=== PATIENT | female | born 1950 | race Caucasian/White ===

== ENCOUNTER 2017-07-20 07:12 | Outpatient (CLI) | payer BC ==
[2017-07-20 09:45] LABS: INR-International Normal Ratio 1.1; PTT 30.7 SEC (22.9-36.1); Prothrombin Time 14.2 SEC (12.0-14.7)
--- NOTE | 2017-07-20 10:54 | RAD ---
CHEST TWO VIEWS: HISTORY: Preop. COMPARISON: Chest radiograph from 11/11/2015 FINDINGS: The lungs are without focal air space consolidation, pneumothorax, or effusion. [place] fusion hardwa re is present. Lower thoracic spine focal kyphosis. Lumbar spine fusion hardware. No focal air space consolidation, pneumothorax, or effusion. Some scarring is present in the right m iddle lobe. IMPRESSION: No acute intrathoracic abnormality. POS: [facility]
--- NOTE | 2017-07-25 08:44 | EKG ---
Test Reason : Blood Pressure : / mmHG Vent. Rate : 070 BPM Atrial Rate : 070 BPM P-R Int : 186 ms QRS Dur : 142 ms QT Int : 442 ms P-R-T Axes : 059 -54 019 degrees QTc Int : 477 ms Normal sinus rhythm Right bundle branch block Left anterior fascicular block Bifascicular block Abnormal ECG When compared with ECG of 07-AUG-2015 09:33, No significant change was found Confirmed by MATEUS HOLT MD ([id number]) on 07/25/2017 8:43:36 AM Referred By: WALE Confirmed By:MATEUS HOLT MD
== END 2017-07-20 07:13 | disposition home or self-care (01) ==
LOC: LABBT 07:12
PROVIDERS: ATTEND Orthopaedic Surgery
DX: Z01.818 Encounter for other preprocedural examination (principal); M17.12 Unilateral primary osteoarthritis, left knee
CPT/HCPCS: 71046; 85610; 85730; 86850; 86900; 86901; 87081; 93005; 93010

== ENCOUNTER 2017-07-20 08:00 | Inpatient (IN) | payer BC, MEDICARE ==
[2017-07-20 08:08] VITALS: BMI 32.9
[2017-07-27] MEDS ORDERED: CEFAZOLIN/Water 2 GM/20 ML SYRINGE ONE (08:17)
[2017-07-27] MEDS ORDERED: Vancomycin HCl 1.5 GM, Admixture Fee 1 EACH in Sodium Chloride 0.9% 250 ML 300 ML IVPB SCH (08:30)
[2017-07-27] MEDS ORDERED: Fentanyl 100 MCG/2 ML VIAL ONE ×4 (09:33→13:11)
[2017-07-27] MEDS ORDERED: Midazolam HCl 2 mg/2 ml Vial ONE (09:33)
[2017-07-27] MEDS ORDERED: Ropivacaine 0.2% HCl/PF 20 ML ONE (09:34)
[2017-07-27] MEDS ORDERED: Zolpidem Tartrate 5 MG TAB PO PRN ×2 (10:41→10:52)
[2017-07-27] MEDS ORDERED: Promethazine HCl 25 MG/ML VIAL IM PRN ×3 (10:41→11:21)
[2017-07-27] MEDS ORDERED: diphenhydrAMINE 25 MG CAP PO PRN (10:41)
[2017-07-27] MEDS ORDERED: HYDROcodone/Acetaminophen 10/325 mg Tablet PO PRN ×3 (10:41→10:52)
[2017-07-27] MEDS ORDERED: Fentanyl 100 MCG/2 ML VIAL SLOW IVP PRN ×2 (10:41)
[2017-07-27] MEDS ORDERED: traMADol HCl 50 MG TAB PO PRN ×2 (10:41→10:52)
[2017-07-27] MEDS ORDERED: Ondansetron HCl/PF 4 MG/2 ML Vial IVP PRN ×3 (10:41→11:21)
[2017-07-27] MEDS ORDERED: Acetaminophen 325 MG TAB PO PRN (10:41)
[2017-07-27] MEDS ORDERED: Nitroglycerin 0.4 MG TAB (25 Tab Bottle) SL PRN (10:45)
[2017-07-27] MEDS ORDERED: Torsemide 20 MG TAB PO PRN (10:45)
[2017-07-27] MEDS ORDERED: Ondansetron ODT 4 MG TAB SL PRN (10:45)
[2017-07-27] MEDS ORDERED: Loperamide HCl 2 MG CAP PO PRN (10:45)
[2017-07-27] MEDS ORDERED: Tranexamic Acid 1,000 MG in Sodium Chloride 0.9% 100 ML IVPB SCH (10:45)
[2017-07-27] MEDS ORDERED: Montelukast Sodium 10 mg Tablet PO PRN (10:45)
[2017-07-27] MEDS ORDERED: Ketorolac Tromethamine 30 MG/ML VIAL IVP PRN (10:52)
[2017-07-27] MEDS ORDERED: Fentanyl 100 MCG/2 ML VIAL IV PRN (10:52)
[2017-07-27] MEDS ORDERED: Promethazine HCl 25 MG/ML VIAL SLOW IVP PRN (11:21)
--- NOTE | 2017-07-27 13:03 | OP ---
PREOPERATIVE DIAGNOSIS: Degenerative joint disease, left knee. POSTOPERATIVE DIAGNOSIS: Degenerative joint disease, left knee. SURGEON: Jose Luis Carbajal M.D. ANESTHESIA: General. BLOOD LOSS: Minimal. SPECIMEN: None. DRAINS: None. COMPLICATIONS: None. TOURNIQUET TIME: 48 min. SALESPERSON STEREO EQUIPMENT: Raf Winter PA-C. IMPLANTS USED: Tino Triathlon 4 femur, 4 tibia, 9 mm CSX3 polyethylene, and A32 patella. PROCEDURE IN DETAIL: After informed consent was obtained in the preoperative holding area. The chely ent was taken to the operative suite where general anesthesia was induced. Once adequate level of ge neral anesthesia was obtained, the patient was positioned and a well-padded tourniquet was placed rosales und the left proximal thigh. The left lower extremity was then prepped and draped in the usual steri le fashion. Prior to exsanguination, a time out was called and all members of the surgical team agre ed upon site, surgeon, and patient. The extremity was then exsanguinated and the tourniquet was rais ed. A midline longitudinal incision was then made directly over the patella extending two fingerbrea dths above the superior pole of the patella and two fingerbreadths inferior to the inferior patellar pole of the patella. Deeper subcutaneous layers were dissected sharply and local bleeding was contro lled with Bovie electrocautery. A quad tendon longitudinal split was then made sharply and a median parapatellar arthrotomy was carried out both sharp and with Bovie electrocautery, carried down to one fingerbreadth medial to the tibial tubercle. The knee was then placed into flexion and the patella was everted nicely, and a copious fat pad ectomy was performed allowing for greater exposure of the t ibia. The computer-assisted distal femoral fiducial was then placed and pinned firmly, and the dista l femoral cutting guide was pinned firmly into place. The oscillating saw was then used to remove th e appropriate amount of bone. The 4-in-1 cutting block was then placed on the distal femur and the o scillating saw was used to remove the appropriate amount of bone off of the anterior, posterior, and chamfer cuts. After completion of bone cuts, the anterior cruciate ligament was resected sharply and the posterior cruciate ligament retractor was placed and the tibia was subluxed for better exposure. Partial meniscectomies were carried out, and the tibial computer-assisted fiducial was pinned, and the cutting guide was placed. Oscillating saw was then used to remove the bone with Hohmann retracto rs used to take care and protect the collateral ligaments. After the tibial resection was performed, a laminar print color operator was placed in between the freshened bone cuts. The knee placed at 90 degrees and further bilateral meniscectomies were carried out, and the curved osteotome and curettage was used t o remove any excess bone spurs in the posterior compartment. The trial femoral component, tibial bas eplate were placed with the appropriate polyethylene trial insert with an appropriate polyethylene sp acer and patellar button. The knee was taken through full range of motion with flexion and extension from 0-90 degrees and patellar broach squarely in the trochlea without any squinting or subluxation noted. The knee was also stable to varus and valgus stressing at 0, 15, 45, and 90 degrees of flexio n. The drawer was negative. All trial components were then removed and the keel punch was used to pr ovide the appropriate defect in the tibia with a mallet. The freshened bone cuts were copiously irri gated with pulsatile lavage of about 1-1/2 liters to remove all excess debris. The freshened bone cu ts were then dried and with suction and lap sponge. The knee was placed in flexion and retractors we re placed to provide access to all bone cuts. Tobramycin impregnated methyl methacrylate cement was then placed on the freshened bone cuts and implants which were malleted firmly into place. Curettage and [place] elevators were used to remove any excess bone cement. The knee was placed into full exten alida and the patellar button was placed under compression, and the cement was allowed to cure. Once completed, the components were again taken through full range of motion and copious irrigation of the knee was carried out with another liter of normal saline. All components were inspected fully with full range of motion and varus and valgus stressing. There was no laxity noted and full extension was observed clinically. Primary closure was accomplished with #2 interrupted Vicryl stitch of the arth rotomy defect. This was oversewn with a #2 running Quill barbed stitch. The gravitational platelet system was then injected into the arthrotomy prior to closure. The subcutaneous layer was then close d with a running 0 barbed Monocryl stitch and skin closure accomplished with a running subcuticular 3 -0 Monocryl barbed Quill stitch and augmented with cement on the skin. Tourniquet was lowered. Good spontaneous return of distal pulses was noted clinically and a sterile dressing was applied to the i ncision. The procedure was terminated without any complications. The patient was awakened in the op erative suite and the tourniquet was removed, and the patient was taken to the recovery room in stabl e condition.
[2017-07-27] MEDS ORDERED: Promethazine HCl 25 MG/ML VIAL ONE (13:21)
[2017-07-27] MEDS ORDERED: hydrALAZINE 20 MG/ML VIAL ONE (13:24)
[2017-07-27] MEDS ORDERED: Ketorolac Tromethamine 30 MG/ML VIAL IM SCH (14:00)
--- NOTE | 2017-07-27 14:17 | RAD ---
RADIOGRAPH LEFT KNEE TWO VIEWS: Date: 07-27-17 History: 67-year-old female with left knee pain. FINDINGS: Metallic prostheses cover the resurfaced articular surfaces of the distal femur and tibial plateau. T here are resurfacing changes in the posterior aspect of the patella. There is fluid and gas in the an terior soft tissues of the knee. IMPRESSION: Very recently status post left knee total replacement arthroplasty. POS: [facility]
[2017-07-27] MEDS: HYDROcodone/Acetaminophen 10/325 mg Tablet PO PRN ×2 (14:38→20:25)
[2017-07-27] MEDS: Sodium Chloride 0.9% 1,000 ML IV SCH (14:52)
[2017-07-27] MEDS ORDERED: Ropivacaine 0.2% HCl/PF (40 MG/20 ML VIAL) ONE (15:39)
[2017-07-27] MEDS ORDERED: Ropivacaine 0.5% HCl/PF (150 MG/30 ML VIAL) ONE (15:39)
[2017-07-27] MEDS ORDERED: PHENYLEPHRINE-NS 100 MCG/ML 10 ML SYRINGE ONE (16:10)
[2017-07-27] MEDS ORDERED: ePHEDrine/0.9% NaCl/PF SYRINGE 50 mg/10 ml ONE (16:10)
[2017-07-27] MEDS ORDERED: Lidocaine 1% PF 5 ML VIAL ONE (16:10)
[2017-07-27] MEDS ORDERED: PROPOFOL 200 MG/20 ML VIAL ONE (16:10)
[2017-07-27] MEDS: tiZANidine HCl 4 MG TAB PO PRN (16:51)
[2017-07-27] MEDS: CEFAZOLIN/Water 2 GM/20 ML SYRINGE SLOW IVP SCH (16:52)
[2017-07-27] MEDS: Aspirin 81 mg Enteric Coated Tablet PO SCH (20:27)
[2017-07-27] MEDS: Atorvastatin Calcium 40 MG TAB PO SCH (20:27)
[2017-07-27] MEDS: ALPRAZolam 0.5 MG TAB PO PRN (20:43)
[2017-07-28] MEDS: CEFAZOLIN/Water 2 GM/20 ML SYRINGE SLOW IVP SCH (00:26)
[2017-07-28] MEDS: Sodium Chloride 0.9% 1,000 ML IV SCH ×3 (00:27→14:43)
[2017-07-28] MEDS: Bupivacaine 0.5% 50 ML in Sodium Chloride 0.9% 50 ML NERVE BLCK SCH ×3 (01:44→16:24)
[2017-07-28] MEDS: tiZANidine HCl 4 MG TAB PO PRN ×3 (02:05→21:21)
[2017-07-28] MEDS: HYDROcodone/Acetaminophen 10/325 mg Tablet PO PRN ×5 (02:11→22:24)
[2017-07-28 05:49] LABS: Hemoglobin 10.3 g/dL (12.0-16.0); Mean Corpuscular HGB CONC 33.2 g/dL (32.0-36.0); Mean Corpuscular Hemoglobin 29.9 pg (27.0-31.0); Platelet Count 249 thou/uL (130-400); RBC Distribution Width 13.6 % (11.5-14.5); Red Blood Cell (RBC) Count 3.46 mill/uL (4.20-5.40); White Blood Cell (WBC) Count 5.6 thou/uL (4.8-10.8)
[2017-07-28] MEDS: Levothyroxine Sodium 100 MCG TAB PO SCH (06:08)
[2017-07-28] MEDS ORDERED: Dextrose 5% in Water 1,000 ML IV PRN (07:30)
[2017-07-28] MEDS ORDERED: Dextrose 50% Abboject 50 ML SYRINGE SLOW IVP PRN (07:30)
--- NOTE | 2017-07-28 07:52 | CON ---
DATE OF CONSULTATION: 07/28/2017 HISTORY OF PRESENT ILLNESS: This patient is a 67-year-old female status post left total knee replace ment surgery performed yesterday. She is doing well postoperatively. She has a known history of ath erosclerotic coronary artery disease, recurrent back pain status post multiple lumbar laminectomies, has a history of type 2 diabetes mellitus, not insulin-dependent, has a history of previous bowel obs truction, status post partial colectomy. She is doing well. She is complaining of some pain today. Otherwise, no other medical complaints are noted. PHYSICAL EXAMINATION: VITAL SIGNS: Temperature is 97.7, BP 160/74. HEENT: Normocephalic, atraumatic. Sclerae and conjunctivae clear. Throat clear. NECK: Supple, full range of motion, no masses. LUNGS: Reveal bilateral breath sounds. HEART: Reveals no murmur. EXTREMITIES: No clubbing, edema or cyanosis. NEUROLOGICAL: She is alert and oriented x3. LABORATORY: Postoperative hemoglobin 10.3, hematocrit 31.2. IMPRESSION: 1. Status post left total knee replacement surgery. 2. History of atherosclerotic coronary artery disease, stable. 3. History of type 2 diabetes mellitus, not insulin-dependent. 4. Previous history of bowel obstruction, status post partial colectomy. PLAN: 1. Will place her on glucose monitoring. She may use her home [place] and monitor on diabetic care. 2. Otherwise, continue to follow.
[2017-07-28] MEDS: traMADol HCl 50 MG TAB PO PRN ×3 (08:43→20:18)
[2017-07-28] MEDS: Valsartan 80 MG TAB PO SCH (08:46)
[2017-07-28] MEDS: Senokot S 8.6-50 MG TAB PO SCH ×2 (08:47→20:19)
[2017-07-28] MEDS: metFORMIN 500 MG TAB PO SCH ×2 (08:47→16:24)
[2017-07-28] MEDS: Lactinex Tablet PO SCH (08:47)
[2017-07-28] MEDS: Aspirin 81 mg Enteric Coated Tablet PO SCH ×2 (08:47→20:20)
[2017-07-28] MEDS: Ferrous Gluconate 324 MG TAB PO SCH ×2 (08:47→20:19)
[2017-07-28] MEDS: Vit A,C & E/Lutein/Minerals Tablet PO SCH ×2 (08:47→20:19)
[2017-07-28] MEDS: Spironolactone 25 MG TAB PO SCH (08:48)
[2017-07-28] MEDS: Multivitamin W/ Minerals 1 TAB PO SCH (08:48)
--- NOTE | 2017-07-28 13:07 | PRG ---
DATE OF SERVICE: 07/28/2017 SUBJECTIVE: Rosalia is a 67-year-old female who is postop day #1 from left total knee arthroplasty. S he is doing relatively well. She did have some discomfort last night. Her pain medications have bee n adjusted. Otherwise, she is tolerating regular diet. OBJECTIVE: GENERAL: She is alert and oriented to person, time, and situation. VITAL SIGNS: Temperature 97.7, pulse 70, respiratory rate 18, O2 saturation 97% on room air, blood p ressure is little high at 160/74, and vacillates up to 170 systolic. EXTREMITIES: The inspection of the left lower extremity demonstrated to be neurovascularly intact. She has good block as no strike through the incision. HEMOGRAM: Hemoglobin is 10.3 and hematocrit is 31.2. IMPRESSION: 1. A 67-year-old female postop day #1, left total knee arthroplasty doing relatively well. Pain con trol adequately. 2. Mild postoperative hemorrhagic anemia. PLAN: Continue current care. Consider discharge to home tomorrow or quite possibly Wednesday at the la test.
[2017-07-28] MEDS: INSULIN GLARGINE HUM REC ANLOG 300 UNIT SQ SCH ×3 (16:52→20:33)
[2017-07-28] MEDS: Atorvastatin Calcium 40 MG TAB PO SCH (20:20)
[2017-07-28] MEDS: ALPRAZolam 0.5 MG TAB PO PRN (22:23)
[2017-07-29] MEDS: Sodium Chloride 0.9% 1,000 ML IV SCH ×2 (02:06→13:23)
[2017-07-29] MEDS: HYDROcodone/Acetaminophen 10/325 mg Tablet PO PRN (03:00)
[2017-07-29 04:56] LABS: Mean Corpuscular HGB CONC 32.9 g/dL (32.0-36.0); Mean Corpuscular Hemoglobin 29.5 pg (27.0-31.0); Mean Corpuscular Volume 89.7 fl (81.0-99.0); Mean Platelet Volume 6.9 fL (7.4-10.4); Platelet Count 236 thou/uL (130-400); RBC Distribution Width 13.6 % (11.5-14.5); Red Blood Cell (RBC) Count 3.38 mill/uL (4.20-5.40); White Blood Cell (WBC) Count 6.1 thou/uL (4.8-10.8)
[2017-07-29] MEDS: traMADol HCl 50 MG TAB PO PRN (05:23)
[2017-07-29] MEDS: Levothyroxine Sodium 100 MCG TAB PO SCH (05:23)
[2017-07-29] MEDS: tiZANidine HCl 4 MG TAB PO PRN (05:23)
[2017-07-29] MEDS: Bupivacaine 0.5% 50 ML in Sodium Chloride 0.9% 50 ML NERVE BLCK SCH (05:23)
--- NOTE | 2017-07-29 07:41 | PRG ---
DATE OF SERVICE: 07/29/2017 SUBJECTIVE: Ms. Bruce is doing well postoperatively. No other significant complaints. PHYSICAL EXAMINATION: VITAL SIGNS: Blood pressure 130/64, temperature 98.1. LUNGS: Clear. HEART: Reveals no murmur. IMPRESSION: 1. Status post left total knee replacement. 2. Atherosclerotic coronary artery disease. 3. Type 2 diabetes mellitus. PLAN: Continue current treatment regimen.
[2017-07-29] MEDS: Senokot S 8.6-50 MG TAB PO SCH (08:54)
[2017-07-29] MEDS: Valsartan 80 MG TAB PO SCH (08:54)
[2017-07-29] MEDS: Lactinex Tablet PO SCH (08:54)
[2017-07-29] MEDS: Vit A,C & E/Lutein/Minerals Tablet PO SCH (08:54)
[2017-07-29] MEDS: Ferrous Gluconate 324 MG TAB PO SCH (08:54)
[2017-07-29] MEDS: Multivitamin W/ Minerals 1 TAB PO SCH (08:55)
[2017-07-29] MEDS: Aspirin 81 mg Enteric Coated Tablet PO SCH (08:55)
[2017-07-29] MEDS: Spironolactone 25 MG TAB PO SCH (08:55)
[2017-07-29] MEDS: metFORMIN 500 MG TAB PO SCH (08:55)
[2017-07-29] MEDS: INSULIN GLARGINE HUM REC ANLOG 300 UNIT SQ SCH (08:56)
[2017-07-29 12:34] VITALS: BP 130/65; TEMP 97.4
== END 2017-07-29 13:55 | disposition home or self-care (01) | DRG 470 ==
LOC: SURG A 07-27 07:39
PROVIDERS: ADMIT Orthopaedic Surgery; ATTEND Orthopaedic Surgery
PROC: 0SRD0J9 Replacement of Left Knee Joint with Synthetic Substitute, Cemented, Open Approach (ICD-10-PCS; principal; 2017-07-27)
DX: M17.12 Unilateral primary osteoarthritis, left knee (principal); D62 Acute posthemorrhagic anemia; E11.9 Type 2 diabetes mellitus without complications; I25.10 Atherosclerotic heart disease of native coronary artery without angina pectoris; Z79.84 Long term (current) use of oral hypoglycemic drugs; Z91.81 History of falling
CPT/HCPCS: 36415; 36416; 85027; C1713; C1776; G8978-GP-CL; G8979-GP-CJ; J0360; J1885; J2001; J2250; J2550; J2704; J2795; J3010; J3370; J3490; J7050; Q0162

== ENCOUNTER 2017-10-13 12:54 | Outpatient (CLI) | payer BC ==
[~2017-10-13 12:54] MED LIST: Gadobenate Dimeglumine 529 MG/1 ML (20ML VIAL) ONE
--- NOTE | 2017-10-13 15:57 | MRI ---
PRE AND POSTCONTRAST ENHANCED MRI OF THE CERVICAL SPINE: Date: 10/13/17 HISTORY: Neck pain down arm. Previous history of surgery. TECHNIQUE: Multiplanar, multisequence pre and postcontrast enhanced MR images of cervical spine obtained. FINDINGS: The patient has had anterior cervical spine fusion with fusion of C4, C5, C6, and C7 vertebrae. Poste rior fusion hardware is in place. Susceptibility artifact significantly degrades image quality extend ing from C4 down to C7. No significant evidence of spinal cord compression is seen. Further workup using cervical myelogram m ay be of use. No evidence of cord abnormality seen. IMPRESSION: Extensive surgical changes seen in the lower cervical spine with anterior fusion and posterior fusion hardware in place. POS: [facility]
--- NOTE | 2017-10-13 16:25 | MRI ---
MRI OF THE LUMBAR SPINE WITH AND WITHOUT CONTRAST: 10/13/17 HISTORY: Lumbar radiculopathy. Pain. COMPARISON: None TECHNIQUE: MRI of the lumbar spine is performed without intravenous gadolinium administration. Multisequential, multiplanar imaging is performed. FINDINGS: There are bilateral transpedicular screws at L4 and L5. There is associated metallic susceptibility a rtifact. There is leftward curvature of the lumbar spine. There is type II Modic change involving the L1-L2 disc space as well as the L3-L4 disc space. There is near complete fusion of these aforementio harry disc spaces. On the postcontrast images, there is no abnormal enhancement of the vertebral bodies . There is no abnormal enhancement within the thecal sac, including the cauda equina and conus medull maritza. There is symmetric signal intensity of the psoas muscles. There is appropriate signal intensity of th e visualized solid organs. Conus medullaris terminates at the L1 level. T12-L1: Desiccation with moderate loss of disc space height. Broad based disc bulge, ligamentum flavu m thickening and facet hypertrophy result in severe bilateral foraminal narrowing. L1-L2: Severe loss of disc space height. There is mild central canal stenosis with what is presumed t o be a broad based disc osteophyte complex. Moderate right and mild left neural foraminal narrowing. L2-L3: Desiccation with moderate loss of disc space height. Generalized disc bulge, ligamentum flavum , and facet hypertrophy result in severe central canal stenosis. Moderate right and mild left neural foraminal narrowing. L3-L4: There is fusion of the disc space. There is posterior decompression and laminectomy defect. Mi ld central canal stenosis. Moderate bilateral foraminal narrowing. L4-L5: Desiccation with moderate loss of disc space height. Broad based disc bulge, ligamentum flavum thickening and facet hypertrophy result in moderate to severe central canal stenosis. Mild right and severe left foraminal narrowing. L5-S1: desiccation with mild loss of disc space height. Mild central canal stenosis. Mild right and m oderate left neural foraminal narrowing. IMPRESSION: 1. Degenerative changes lumbar spine as detailed above. 2. Postoperative changes lumbar spine as above. Laminectomy defect at L3-L4 is noted. There are varying degrees of significant central canal stenosis and foraminal narrowing as described above. Lef tward curvature of the lumbar spine is identified. POS: [facility]
== END 2017-10-13 12:55 | disposition home or self-care (01) ==
LOC: SCSMRI 12:54
PROVIDERS: ATTEND Nurse Practitioner Family
DX: M47.26 Other spondylosis with radiculopathy, lumbar region (principal); M54.12 Radiculopathy, cervical region; M48.061 Spinal stenosis, lumbar region without neurogenic claudication; M48.07 Spinal stenosis, lumbosacral region; M99.81 Other biomechanical lesions of cervical region; Z98.890 Other specified postprocedural states; Z98.1 Arthrodesis status
CPT/HCPCS: 72156; 72158; 82565; A9579

== ENCOUNTER 2017-11-22 06:40 | Day surgery (SDC) | payer BC ==
[2017-11-19 15:25] VITALS: BMI 32.0
[2017-11-22 08:07] VITALS: BP 132/73; TEMP 97.7
--- NOTE | 2017-11-22 10:06 | RAD ---
CERVICAL SPINE 2 VIEWS: Date: 11/22/17 HISTORY: Cervical fusion. Pain. COMPARISON: 05/20/16. FINDINGS: Two views of the cervical spine demonstrate stable fusion changes. There is an anterior fusion plate bridging between C4 and c7. There is corpectomy change at C5, C6, and C7. There are posterior fusion changes from C4 through C7. When compared to the previous exam, there is no change. No prevertebral s oft tissue swelling. Vascular calcifications in the left and right carotid are suggested. IMPRESSION: Stable cervical fusion change. POS: [facility]
[2017-11-22] MEDS ORDERED: Iopamidol-M 300 61% 15 ML VIAL ONE (10:10)
--- NOTE | 2017-11-22 10:26 | RAD ---
CERVICAL MYELOGRAM: Date: 11/22/17 HISTORY: Cervical radiculopathy. EXPOSURE: 1 minute. 585.6 mGy*cm^2. FINDINGS: 2 View Lumbar Spine Continuous Conveyor Screen Drier Radiograph: There is leftward curvature of the upper lumbar spine. There are bilateral transpedicular screws at L 4 and L5 without significant perihardware lucency. Multilevel vacuum disc phenomenon noted. Continuous Conveyor Screen Drier radiograph demonstrates previous surgery change in the right hemipelvis. Successful lumbar puncture for intrathecal contrast administration. A total of 9 mL of Isovue-M300 wa s administered intrathecally. The patient tolerated the procedure well. No immediate or postprocedure complications. TECHNIQUE: Consent obtained to perform a lumbar puncture. Patient's back is evaluated. There is leftward curvatu re of the upper lumbar spine. The is vacuum disc phenomenon at multiple levels. Patient's back was ev aluated. L1-L2 level was deemed appropriate. Skin prepped and draped in the sterile fashion. 1% lidoc raad, buffered with sodium bicarbonate, was used for local anesthesia. Under fluoroscopic guidance, a 22 gauge spinal needle was advanced into the CSF space. Inner stylette was removed. There was prompt flow of clear CSF into the hub of the needle. Via a short tubing catheter, a total of 9 mL of Isovue -300M contrast was administered intrathecally. The patient tolerated the procedure well. No immediate or postprocedure complications. IMPRESSION: Successful lumbar puncture for cervical myelogram. Please refer to post myelogram CT for further deta il. POS: [facility]
--- NOTE | 2017-11-22 10:39 | CT ---
CT CERVICAL SPINE POST MYELOGRAM: Date: 11/22/17 HISTORY: Cervical radiculopathy. Previous cervical fusion. COMPARISON: 11/08/15. TECHNIQUE: Post myelogram cervical spine CT is performed in the axial plane. Coronal and sagittal reformatted im ages are submitted for interpretation. FINDINGS: No craniocervical dissociation. Lateral masses of C1 and C2, as well as the facets, have appropriate articulation. There appears to be interval placement of transvertebral screws at C4 through C7. There is corpectomy change at C5 and C6. No perihardware lucency. There are fusion changes in the posterio r elements from C4 through C7. There is interval disruption of the anterior C1 ring. Cortication suggests a chronic process. There i s appropriate alignment of the anterior aspect of C1 and the anterior aspect of C2. There is no preve rtebral soft tissue swelling. Soft tissue neck structures are unremarkable. Upper mediastinum and lung apices are unremarkable. There are laminectomy defects at C4, C5, and C6. Visualized brain parenchyma and cervicomedullary junction are unremarkable. C2-C3: Broad based disc osteophyte complex with a central component that abuts the thecal sac. Mild central canal stenosis. Patient neural foraminal narrowing. C3-C4: There is a broad based disc osteophyte complex and posterior element hypertrophy that results in mild central canal stenosis. Mild right foraminal narrowing. Left neural foramen is patent. C4-C5: Posterior decompression. There is a right paracentral osteophyte. Mild central canal stenosis. Right facet hypertrophy. Mild right foraminal narrowing. Left neural foramen is patent. C5-C6: There is a right paracentral osteophyte ridge. There is deformity to the ventral sac and deformity of the cord. Decompressive laminectomy defect is noted. There is no high grade central canal stenosis. Moderate right foraminal narrowing. Left neural foramen is patent. C6-C7: There is a broad based osteophyte ridge which abuts the thecal sac. Mild central canal stenosis. Ther e are posterior decompressive laminectomy defects. Severe right and mild left foraminal narrowing. C7-T1: No high grade central canal stenosis or high grade neural foraminal narrowing. IMPRESSION: 1. Postsurgical/fusion changes as above. 2. Varying degrees of central canal stenosis and foraminal narrowing as above. POS: [facility]
== END 2017-11-22 09:45 | disposition home or self-care (01) ==
LOC: RAD 06:40
PROVIDERS: ATTEND Anesthesiology Pain Medicine
PROC: B02B1ZZ Computerized Tomography (CT Scan) of Spinal Cord using Low Osmolar Contrast (ICD-10-PCS; principal; 2017-11-22)
DX: M54.12 Radiculopathy, cervical region (principal); M48.02 Spinal stenosis, cervical region; M54.16 Radiculopathy, lumbar region; E11.9 Type 2 diabetes mellitus without complications; I11.9 Hypertensive heart disease without heart failure; Z79.02 Long term (current) use of antithrombotics/antiplatelets; Z79.82 Long term (current) use of aspirin; Z79.84 Long term (current) use of oral hypoglycemic drugs; Z79.899 Other long term (current) drug therapy; Z98.1 Arthrodesis status; Z88.5 Allergy status to narcotic agent; Z95.5 Presence of coronary angioplasty implant and graft
CPT/HCPCS: 62302; 72040; 72126

== ENCOUNTER 2018-02-12 13:45 | Emergency (ER) | payer BC, MEDICARE ==
[2018-02-12 14:30] LABS: #Basophils 0.1 thou/uL (0.0-0.2); #Eosinphils 0.1 thou/uL (0.0-0.7); #Lymphocytes 1.8 thou/uL (1.20-3.40); #Monocytes 0.5 thou/uL (0.11-0.59); %Basophils 0.8 % (0.0-1.0); %Eosinophils 1.5 % (0.0-10.0); %Lymphocytes 27.5 % (21.0-51.0); %Monocytes 8.3 % (0.0-10.0); %Neutrophils 61.8 % (42.0-75.0); Mean Corpuscular HGB CONC 31.8 g/dL (32.0-36.0); Mean Corpuscular Hemoglobin 28.7 pg (27.0-31.0); Mean Corpuscular Volume 90.4 fL (78.0-98.0); Platelet Count 287 thou/uL (130-400); RBC Distribution Width 13.4 % (11.5-14.5); Red Blood Cell (RBC) Count 4.17 mill/uL (4.20-5.40); White Blood Cell (WBC) Count 6.5 thou/uL (4.8-10.8)
[2018-02-12 14:51] LABS: Anion Gap 15 mmol/L (10-20); BUN (Urea Nitrogen) 19 mg/dL (9.8-20.1); CK (CPK) 668 U/L (29-168); Calc. Creatinine Clearance 0 mL/min (70-130); Calcium 9.3 mg/dL (7.8-10.44); Carbon Dioxide 27 mmol/L (23-31); Chloride 102 mmol/L (98-107); Estimated GFR-MDRD 44; Glucose 279 mg/dL (80-115); Magnesium 1.4 mg/dL (1.6-2.6); Potassium 4.1 mmol/L (3.5-5.1); Sodium 140 mmol/L (136-145)
--- NOTE | 2018-02-12 15:36 | ULT ---
LEFT LOWER EXTREMITY VENOUS DOPPLER: Date: 02/12/18 HISTORY: Left calf pain and swelling. COMPARISON: None. FINDINGS: Real-time Gloria scale and color Doppler with spectral analysis of the left lower extremity venous sys tem was performed. The common femoral, femoral, proximal portions of greater saphenous and deep femor al veins, as well as the popliteal and posterior tibial veins were interrogated. Normal flow, augmentation, and compression. IMPRESSION: No deep venous thrombosis. POS: [facility]
== END 2018-02-12 15:40 | disposition home or self-care (01) ==
LOC: ERS 13:45
DX: M79.605 Pain in left leg (principal); N17.9 Acute kidney failure, unspecified; E11.65 Type 2 diabetes mellitus with hyperglycemia; E83.42 Hypomagnesemia; I25.10 Atherosclerotic heart disease of native coronary artery without angina pectoris; I10 Essential (primary) hypertension; E66.9 Obesity, unspecified; F41.9 Anxiety disorder, unspecified; F32.9 Major depressive disorder, single episode, unspecified; Z79.899 Other long term (current) drug therapy; Z79.4 Long term (current) use of insulin
CPT/HCPCS: 36415; 80048; 82550; 83735; 85025

== ENCOUNTER 2018-11-29 05:49 | Day surgery (SDC) | payer BC ==
[2018-11-25 09:41] VITALS: BMI 34.0
[2018-11-29] MEDS ORDERED: Fentanyl 100 MCG/2 ML VIAL ONE (06:15)
[2018-11-29] MEDS ORDERED: Betamet Acet/Betamet Na Ph 30 MG/5 ML VIAL ONE ×2 (06:48→07:36)
[2018-11-29] MEDS ORDERED: Bacitracin Zinc Ointment 30 gm TUBE ONE (06:48)
[2018-11-29] MEDS ORDERED: Bupivacaine PF 0.5% 30 ML VIAL ONE ×2 (06:48→07:36)
[2018-11-29 07:08] LABS: INR-International Normal Ratio 1.1; Prothrombin Time 13.7 SEC (12.0-14.7)
[2018-11-29] MEDS ORDERED: Ketorolac Tromethamine 30 MG/ML VIAL ONE (09:28)
[2018-11-29] MEDS ORDERED: PROPOFOL 200 MG/20 ML VIAL ONE (17:09)
[2018-11-29] MEDS ORDERED: Glycopyrrolate 0.2 MG/ML 5 ML SYRINGE ONE (17:09)
[2018-11-29] MEDS ORDERED: Ondansetron PF 4 MG/2 ML Vial ONE (17:09)
[2018-11-29] MEDS ORDERED: Lidocaine 1% PF 5 ML VIAL ONE (17:09)
--- NOTE | 2018-11-30 08:45 | OP ---
DATE OF PROCEDURE: 11/29/2018 PREOPERATIVE DIAGNOSES: 1. On the right side. a. Right middle finger tenosynovitis with triggering of the right middle finger A1 rosa. b. Right carpal tunnel syndrome. c. Right de Quervain's. 2. On the left side. a. Left carpal tunnel syndrome. b. Left de Quervain's. 3. On both sides, there was a separate compartment for the extensor pollicis brevis with tenosynovitis that was mild at the extensor compartments first dorsal; at the both carpal tunnel, very tight transverse carpal ligament with early stippling of the median nerve carpal tunnel bilaterally and at the right middle finger, there was marked tenosynovitis, requiring a formal radical flexor tenosynovectomy as well as A1 rosa release at the right middle finger. SPECIMEN: Right flexor tenosynovectomy. TOURNIQUET TIME: On the left, 28 minutes and on the right, 32 minutes. PROCEDURES PERFORMED: 1. On the right side;. a. Right carpal tunnel release. b. Right A1 rosa release is at the middle finger. c. Right flexor digitorum profundus and superficialis radical flexor tenosynovectomy A1 rosa level, middle finger. d. Right first dorsal compartment release. 2. On the left side;. a. Left carpal tunnel release. b. Left de Quervain's. c. First dorsal compartment release. DESCRIPTION OF PROCEDURE: After successful general endotracheal anesthesia by [employer]INE[employer], we then had both sides prepped and draped. We injected both sides equally, where the patient received 8 mL of 0.5% Marcaine at each of the incisions x5. The patient then had the left side limb exsanguinated, tourniquet inflated to 250 mmHg pressure and we made our standard carpel tunnel release incision beginning at Ahumada's cardinal line in-line with the ring finger and then coursing to 5 mm distal to the volar wrist flexion crease. We carried this through skin and subcutaneous tissue until we reached the transverse carpal ligament. Entering the transcarpal ligament its midportion just ulnar to the palmaris longus insertion, we identified the contents underneath, then released them from midportion distally protecting the distal structures and then from the midportion proximally in protecting the structures under direct visualization and combination with tenotomy and Kenaitze blade. We then placed 3 mL of Celestone in the wound. We turned our attention to the first dorsal compartment, where we identified the radial styloid and made an incision that was 2.5 cm long, centered on the styloid, carried through skin and subcutaneous tissue, identified the superficial radial nerve branches and protecting it from the center of the field. In the middle of the tendon sheaths and the retinaculum, it was very thick with a very tight retinaculum. A Kenaitze blade was used to release it at the dorsal compartment and approximately 1 cm distally and proximally preserving and protected the radial nerve branches. We then lifted the tendons up. There was minimal tenosynovitis, but not enough for synovectomy, but we found extensor pollicis brevis as a separate compartment, which were released with a Kenaitze blade. We then placed Celestone here, released the tourniquet and closed both wounds with interrupted 4-0 nylon in a combination of mattress in a simple pattern. Bulky dressing was applied and there was excellent hemostasis and color with tourniquet deflated. On the right side, we did the exact mirror-image procedures at the carpal tunnel and first dorsal compartment, but we added the A1 rosa release, where we made a longitudinal V-shaped incision centered on the flexion crease just proximal to the A1 rosa, carried through skin and subcutaneous tissue. We identified neurovascular bundles, protected it from the midline. We then retracted it gently. We had marked amount of synechiae and fronds just proximal to the A1 rosa to release them and then cut them so that it could not be regrow. Then, we released the A1 rosa in the midline, it was thick, with a Kenaitze blade, it was now free and we lifted up the tendon. There was marked tenosynovitis under A1 rosa and proximal to it, so we performed a radical flexor digitorum superficialis and profundus tenosynovectomy. Part of that specimen sent to the lab to identify potential connective disease. The tourniquet was deflated here and the wound was closed in the same fashion with same amount of Celestone and Marcaine given as the contralateral right side. Bulky soft dressing was applied on both, Puneet wrap was applied and the patient left the operating room without evidence of anesthetic or operative complication. Job ID: [id number]
== END 2018-11-29 10:40 | disposition home or self-care (01) ==
LOC: SDC 05:49
PROVIDERS: ATTEND Orthopaedic Surgery Hand Surgery
PROC: 0LN60ZZ Release Left Lower Arm and Wrist Tendon, Open Approach (ICD-10-PCS; principal; 2018-11-29)
PROC: 0LN80ZZ Release Left Hand Tendon, Open Approach (ICD-10-PCS; principal; 2018-11-29)
PROC: 0LN50ZZ Release Right Lower Arm and Wrist Tendon, Open Approach (ICD-10-PCS; principal; 2018-11-29)
PROC: 0LB70ZZ Excision of Right Hand Tendon, Open Approach (ICD-10-PCS; principal; 2018-11-29)
PROC: 01N50ZZ Release Median Nerve, Open Approach (ICD-10-PCS; principal; 2018-11-29)
PROC: 0LN70ZZ Release Right Hand Tendon, Open Approach (ICD-10-PCS; principal; 2018-11-29)
DX: G56.03 Carpal tunnel syndrome, bilateral upper limbs (principal); M65.4 Radial styloid tenosynovitis [de Quervain]; M65.331 Trigger finger, right middle finger; I10 Essential (primary) hypertension; E11.9 Type 2 diabetes mellitus without complications; Z95.5 Presence of coronary angioplasty implant and graft; Z79.4 Long term (current) use of insulin; Z79.82 Long term (current) use of aspirin; Z79.899 Other long term (current) drug therapy; Z88.5 Allergy status to narcotic agent; Z91.048 Other nonmedicinal substance allergy status
CPT/HCPCS: 36415; 36416; 85610; 85730; 88305; J0690; J0702; J1885; J2001; J2405; J2704; J3010; S0020

== ENCOUNTER 2018-12-12 11:11 | Outpatient (CLI) | payer BC ==
--- NOTE | 2018-12-12 11:23 | RAD ---
EXAM: Chest 2 views: HISTORY: Chronic diastolic congestive heart failure COMPARISON: None. FINDINGS: There is a normal-sized cardiomediastinal silhouette. Increased interstitial markings are present. There is no evidence of consolidation, mass, or pleural effusion. Degenerative changes are seen in the spine. Hardware is seen in the cervical and lumbar spine. IMPRESSION: No evidence of acute cardiopulmonary disease
== END 2018-12-12 11:12 | disposition home or self-care (01) ==
LOC: RAD 11:11
PROVIDERS: ATTEND Nurse Practitioner Family
DX: I50.32 Chronic diastolic (congestive) heart failure (principal)
CPT/HCPCS: 71046

== ENCOUNTER 2018-12-29 16:07 | Inpatient (IN) | payer BC ==
[~2018-12-29 16:07] MED LIST changes: -Gadobenate Dimeglumine 529 MG/1 ML (20ML VIAL) ONE; +Lidocaine 1% PF 5 ML VIAL ONE; +Ondansetron PF 4 MG/2 ML Vial ONE; +PHENYLEPHRINE-NS 100 MCG/ML 10 ML SYRINGE ONE; +PROPOFOL 200 MG/20 ML VIAL ONE; +ePHEDrine 50 MG/ML VIAL ONE
[2018-12-29] MEDS ORDERED: Sodium Chloride 0.9% 50 ML ONE (16:48)
[2018-12-29] MEDS ORDERED: Bacitracin Zinc Ointment 30 gm TUBE ONE (16:48)
[2018-12-29] MEDS ORDERED: Bupivacaine PF 0.5% 30 ML VIAL ONE (16:48)
[2018-12-29 16:55] LABS: #Eosinphils 0.2 thou/uL (0.0-0.7); #Monocytes 0.8 thou/uL (0.11-0.59); #Neutrophils 5.1 thou/uL (1.40-6.50); %Basophils 0.1 % (0.0-1.0); %Lymphocytes 24.5 % (21.0-51.0); %Monocytes 9.9 % (0.0-10.0); %Neutrophils 63.6 % (42.0-75.0); Mean Corpuscular HGB CONC 33.8 g/dL (32.0-36.0); Mean Corpuscular Hemoglobin 29.8 pg (27.0-31.0); Mean Corpuscular Volume 88.2 fL (78.0-98.0); Mean Platelet Volume 7.6 fL (7.4-10.4); Platelet Count 280 thou/uL (130-400); RBC Distribution Width 13.2 % (11.5-14.5); Red Blood Cell (RBC) Count 3.69 mill/uL (4.20-5.40)
[2018-12-29 17:13] LABS: Anion Gap 12 mmol/L (10-20); BUN (Urea Nitrogen) 24 mg/dL (9.8-20.1); Calc. Creatinine Clearance 0 mL/min (70-130); Carbon Dioxide 29 mmol/L (23-31); Chloride 103 mmol/L (98-107); Estimated GFR-MDRD 45; Glucose 95 mg/dL (80-115); Potassium 3.4 mmol/L (3.5-5.1); Sodium 141 mmol/L (136-145)
[2018-12-29] MEDS ORDERED: Clindamycin/D5W 600 mg/50 ml Premix Bag ONE (17:13)
[2018-12-29] MEDS ORDERED: Fentanyl 100 MCG/2 ML VIAL ONE ×2 (18:17→20:37)
[2018-12-29] MEDS ORDERED: Promethazine HCl 25 MG/ML VIAL IM PRN ×2 (19:42→19:44)
[2018-12-29] MEDS ORDERED: Ondansetron HCl/PF 4 MG/2 ML Vial IVP PRN (19:42)
[2018-12-29] MEDS ORDERED: Promethazine HCl 25 MG/ML VIAL SLOW IVP PRN (19:42)
[2018-12-29] MEDS ORDERED: HYDROcodone/Acetaminophen 5/325 mg Tablet PO PRN (19:44)
[2018-12-29] MEDS ORDERED: traMADol HCl 50 MG TAB PO PRN (19:44)
[2018-12-29] MEDS ORDERED: Acetaminophen 325 MG TAB PO PRN (19:44)
[2018-12-29] MEDS ORDERED: Milk Of Magnesia 30 ML UDCUP PO PRN (19:44)
[2018-12-29] MEDS ORDERED: Ondansetron PF 4 MG/2 ML Vial IVP PRN (19:44)
[2018-12-29] MEDS ORDERED: Fentanyl 100 MCG/2 ML VIAL SLOW IVP PRN (19:44)
[2018-12-29] MEDS ORDERED: Bisacodyl 10 MG SUPP PR PRN (19:44)
[2018-12-29] MEDS ORDERED: Meperidine HCl/PF 25 MG/ML VIAL IM PRN (19:49)
[2018-12-29] MEDS ORDERED: TETANUS AND DIPHTHERIA TOX/PF 0.5 ML DISP.SYRIN IM SCH (21:00)
[2018-12-29] MEDS: Morphine 2 MG/ML SYRINGE SLOW IVP PRN ×2 (21:08→23:37)
[2018-12-29] MEDS: Aspirin 81 mg Enteric Coated Tablet PO SCH (21:09)
[2018-12-29 21:18] VITALS: BMI 34.3
[2018-12-29] MEDS ORDERED: hydrALAZINE 20 MG/ML VIAL SLOW IVP PRN (21:54)
[2018-12-29] MEDS ORDERED: Vancomycin HCl 1 GM in Premix Bag 1 BAG IVPB SCH (22:30)
[2018-12-29] MEDS ORDERED: Loperamide HCl 2 MG CAP PO PRN (22:56)
[2018-12-29] MEDS ORDERED: Nitroglycerin 0.4 MG TAB (25 Tab Bottle) SL PRN (22:58)
[2018-12-29] MEDS ORDERED: Acetaminophen/Codeine 30-300mg Tablet PO PRN (23:01)
[2018-12-29] MEDS ORDERED: ALPRAZolam 0.5 MG TAB PO PRN (23:02)
[2018-12-29] MEDS ORDERED: HumaLOG 300 UNITS/3 ML VIAL SC SCH (23:15)
[2018-12-30] MEDS: Morphine 2 MG/ML SYRINGE SLOW IVP PRN (05:51)
[2018-12-30] MEDS ORDERED: Levothyroxine Sodium 100 MCG TAB PO SCH (06:00)
[2018-12-30 07:55] VITALS: TEMP 97.9
[2018-12-30] MEDS: Aspirin 81 mg Enteric Coated Tablet PO SCH (07:55)
[2018-12-30] MEDS ORDERED: Spironolactone 25 MG TAB PO SCH (08:00)
[2018-12-30] MEDS ORDERED: metFORMIN 500 MG TAB PO SCH (08:00)
--- NOTE | 2018-12-30 08:56 | OP ---
DATE OF PROCEDURE: 12/29/2018 PREOPERATIVE DIAGNOSIS: Right middle finger abscess at the site of previous A4 rosa release. FINDINGS: Abscess flexor tendon sheath and its ending was all distal, none proximal to the opening between the A4 and A3 rosa in the sheath. PROCEDURE PERFORMED: 1. Drainage of abscess, palm of the hand. 2. Radical flexor tenosynovectomy of flexor digitorum profundus and superficialis. 3. Drainage of flexor sheath abscess with catheter irrigation for the radical flexor tenosynovectomy abscess wound, palm of the hand. Incision and drainage and then digital flexor sheath abscess drainage with catheter irrigation, cultures and specimens x3: a. Hand flexor sheath. b. Finger flexor sheath. c. Flexor tenosynovitis, palm. DESCRIPTION OF PROCEDURE: After successful general endotracheal anesthesia, the limb prepped and draped. The patient had the limb identified via the time-out and the side, site and procedure matched the consent. We then gave the patient 50 mL of 0.5% Marcaine in a field block hoping it would not be denatured by the obvious pus, exsanguinated the limb, inflated tourniquet to 250 mmHg pressure. Once we had done this, we found old incision, which was a V-shaped incision with the apex slightly radial on the middle finger. We then carried this through skin and subcutaneous tissue until we reached the flexor sheath and found a thick flexor tenosynovitis with minimal purulence, but it appeared of a fusiform swelling distally. We then took a closure of this wound, there was marked tenosynovial swelling so as far as we could see in this wound, we did a radical flexor tenosynovectomy of the flexor digitorum profundus and superficialis. We then went up to the proximal phalangeal joint crease, and made a V-shaped incision on the mid lateral plane on the same side and then found the digital nerve, protected it and immediately we opened the flexor sheath and gross mucopurulent escape. It was liquid and not solid. We then drained this, and decided to make sure the infection did not go much further, so we made another incision in the same midlateral plane, protected the digital nerve and dissected out the flexor sheath just proximal to the A2 rosa and here we found minimal purulence. For this reason, we then performed a sheath irrigation from proximal to distal that was 500 mL and a sheath irrigation from distal to proximal which was approximately . We then irrigated with the normal saline at the openings of these wounds with 5 L normal saline with antibiotics inside, deflated the tourniquet. Hemostasis was excellent. The patient had no further abnormality seen and we irrigated one last time before placing the catheter in for final time, leaving indwelling for later irrigation on the floor. Bulky dressing was applied, all wounds dressed open and the patient left the operating room without evidence of anesthetic or operative complication. Job ID: [id number]
[2018-12-30] MEDS ORDERED: Insulin Glargine 51 UNITS in Pre-Filled Syringe 1 EACH SC SCH (09:00)
[2018-12-30] MEDS ORDERED: Vit A,C & E/Lutein/Minerals Tablet PO SCH (09:00)
[2018-12-30] MEDS ORDERED: Isosorbide Mononitrate (ER) 30 MG TAB PO SCH (09:00)
[2018-12-30] MEDS ORDERED: Losartan 25 MG TAB PO SCH (09:00)
[2018-12-30] MEDS ORDERED: Saccharomyces boulardii 250 MG CAP PO SCH (09:00)
[2018-12-30] MEDS: Torsemide 20 MG TAB PO SCH (09:30)
--- NOTE | 2018-12-30 11:29 | CON ---
DATE OF CONSULTATION: 12/30/2018 HISTORY OF PRESENT ILLNESS: This is a 68-year-old white female, admitted for a right hand abscess, status post I and D by Dr. Johnson. I have been asked to consult for medical management. The patient does have a history of heart disease, hypertension, diabetes. She recently did have bilateral hand surgery on 11/[address] Johnson. She subsequently developed a hand abscess and was I and D'd yesterday. Her blood pressure was noted to be quite elevated at 201/87. Her home medicines were resumed and metoprolol was added. Her main issue is that she is in severe back pain. She has a history of 4 back surgeries. The bed that she is in is quite uncomfortable. She is presently standing up in pain. She is anxious to go home to her own bed. She possibly may be discharged today. PAST MEDICAL HISTORY: Coronary artery disease, followed by Dr. Monte; diabetes; hypertension; history of perforated colon. PAST SURGICAL HISTORY: Spine surgery x4, tubal ligation, history of hand surgery, history of sigmoid resection and colostomy, colostomy reversal, cervical surgery in 11/2014, left knee replacement in 07/2017, bilateral hand surgery on 11/29/2018 for trigger finger. FAMILY HISTORY: Father of heart disease, hyperlipidemia, hypertension, diabetes. Mother from ovarian cancer and CVA. Siblings with hyperlipidemia. Children with hyperlipidemia. SOCIAL HISTORY: The patient worked with [employer]. She is . She does have children. She does not smoke or drink. MEDICATIONS: Include; 1. Synthroid 100 daily. 2. Citrucel daily. 3. Eye drops. 4. Lipitor 40 daily. 5. Plavix 75 daily. 6. Isosorbide ER 60 daily. 7. Aspirin 81 daily. 8. Insulin sliding scale daily. 9. Metformin 500 two b.i.d. 10. Toujeo 72 units every morning, 80 units q.p.m. 11. Protonix 40 daily. 12. Xanax p.r.n. 13. Spironolactone daily. 14. Torsemide daily. ALLERGIES: TRAMADOL AND TAPE. REVIEW OF SYSTEMS: As above. PHYSICAL EXAMINATION: VITAL SIGNS: Temperature 97.8, pulse 86, respirations 16, pulse ox 95%, blood pressure 130/75. GENERAL: The patient is in [id number] low back pain, standing up. HEENT: Clear. HEART: Regular rate and rhythm. LUNGS: Clear. ABDOMEN: Soft, nontender. EXTREMITIES: No edema. Right hand in a dressing. LABORATORY DATA: White count 8.0, hemoglobin and hematocrit 11 and 32. Sodium 141, potassium 3.4, creatinine 1.2, BUN 24, glucose 95. ASSESSMENT: 1. Postop day #1, status post I and D right hand abscess. 2. Hypertension, hyperlipidemia, diabetes. 3. Chronic low back pain, status post multiple back surgeries. 4. Hypothyroid. 5. Coronary artery disease. PLAN: 1. Routine postop wound care. 2. Heating pad to the back. 3. Continue with morphine and hydrocodone for hand and back pain. 4. The patient says she probably will be discharged to home today and cannot wait to get into her own bed. This should bring her blood pressure back to normal levels. 5. Follow up with Dr. Elvis Conn next week for blood pressure re-evaluation. Job ID: [id number]
[2018-12-30 16:14] VITALS: BP 152/78
[2018-12-30] MEDS ORDERED: Atorvastatin Calcium 40 MG TAB PO SCH (21:00)
[2018-12-31] MEDS ORDERED: Metamucil PACK PO SCH (09:00)
== END 2018-12-30 16:18 | disposition home or self-care (01) | DRG 857 ==
LOC: SDC 16:07 → SJJU 19:44
PROVIDERS: ADMIT Orthopaedic Surgery Hand Surgery; ATTEND Orthopaedic Surgery Hand Surgery
PROC: 0LB70ZZ Excision of Right Hand Tendon, Open Approach (ICD-10-PCS; principal; 2018-12-29)
PROC: 0L970ZZ Drainage of Right Hand Tendon, Open Approach (ICD-10-PCS; 2018-12-29)
DX: T81.49XA Infection following a procedure, other surgical site, initial encounter (principal); L02.511 Cutaneous abscess of right hand; M65.141 Other infective (teno)synovitis, right hand; I25.10 Atherosclerotic heart disease of native coronary artery without angina pectoris; M54.5 Low back pain; G89.29 Other chronic pain; E03.9 Hypothyroidism, unspecified; E11.9 Type 2 diabetes mellitus without complications; E78.5 Hyperlipidemia, unspecified; I10 Essential (primary) hypertension; Z96.652 Presence of left artificial knee joint; Z90.49 Acquired absence of other specified parts of digestive tract; Z98.890 Other specified postprocedural states; Z79.02 Long term (current) use of antithrombotics/antiplatelets; Z79.84 Long term (current) use of oral hypoglycemic drugs; Z79.899 Other long term (current) drug therapy; Z91.048 Other nonmedicinal substance allergy status; Z95.5 Presence of coronary angioplasty implant and graft
CPT/HCPCS: 36415; 80048; 85025; 87070; 87077; 87186; 87205; J1815; J2001; J2270; J2405; J2704; J3010; J3370; J3490; S0020

== ENCOUNTER 2019-03-16 12:02 | Outpatient (CLI) | payer BC ==
--- NOTE | 2019-03-16 12:17 | RAD ---
EXAM: Chest Two Views 03/16/2019 12:13 PM HISTORY: Dyspnea COMPARISON: December 12, 2018 FINDINGS: Heart: Normal in size and contour. Pulmonary vessels: Normal. Costophrenic angles: Clear. Lungs: No acute airspace consolidation. Pneumothorax: None. Osseous structures:Instrumentation of the cervical spine is stable. There is diffuse osteopenia. Ther e is multilevel spondylosis of the thoracic spine. There is accentuated kyphosis at the lower thoracic spine which is stable. Additional findings: None. IMPRESSION: No significant acute intrathoracic disease.
== END 2019-03-16 12:03 | disposition home or self-care (01) ==
LOC: RAD 12:02
PROVIDERS: ATTEND Internal Medicine Critical Care Medicine
DX: R06.00 Dyspnea, unspecified (principal)
CPT/HCPCS: 71046

== ENCOUNTER 2020-01-04 09:53 | Outpatient (CLI) | payer BC ==
--- NOTE | 2020-01-04 14:47 | RAD ---
2 VIEWS LUMBAR SPINE: Date: 01/04/2020 HISTORY: Acute midline low back pain, without sciatica. FINDINGS: There is levorotatory scoliosis of the lumbar spine. There are bilateral transpedicular screws at L4 and L5. There are five lumbar-type vertebra. Vertebral body heights are maintained. No fracture. With regards to the aforementioned fusion hardware, no evidence of perihardware lucency. Visualized sacrum and bony pelvis are intact. There is moderate degenerative disc disease with loss of disc space height and osteophyte formation o f the distal thoracic spine and upper lumbar spine. IMPRESSION: 1. Leftward curvature of the lumbar spine. Extensive degenerative changes. 2. No evidence of fracture. POS: [facility]
== END 2020-01-04 09:54 | disposition home or self-care (01) ==
LOC: BICRAD 09:53
PROVIDERS: ATTEND Family Medicine
DX: M54.5 Low back pain (principal); M47.816 Spondylosis without myelopathy or radiculopathy, lumbar region; M43.9 Deforming dorsopathy, unspecified
CPT/HCPCS: 36415; 72100; 80053; 81001; 82043; 83036

== ENCOUNTER 2020-08-20 11:14 | Outpatient (CLI) | payer BC | END 2020-08-20 11:15 | disposition home or self-care (01) | LOC: BICMAMMO 11:14 | PROVIDERS: ATTEND Family Medicine | DX: Z12.31 Encounter for screening mammogram for malignant neoplasm of breast (principal) | CPT/HCPCS: 77063; 77067 ==

== ENCOUNTER 2020-09-08 08:53 | Emergency (ER) | payer BC ==
[2020-09-08 09:39] LABS: #Eosinphils 0.2 thou/uL (0.0-0.7); #Lymphocytes 1.5 thou/uL (1.20-3.40); #Monocytes 0.9 thou/uL (0.11-0.59); #Neutrophils 7.6 thou/uL (1.40-6.50); %Basophils 0.4 % (0.0-1.0); %Eosinophils 1.8 % (0.0-10.0); %Lymphocytes 14.7 % (21.0-51.0); %Monocytes 8.5 % (0.0-10.0); %Neutrophils 74.7 % (42.0-75.0); Hemoglobin 12.9 g/dL (12.0-16.0); Mean Corpuscular HGB CONC 32.2 g/dL (32.0-36.0); Mean Corpuscular Hemoglobin 28.3 pg (27.0-31.0); Mean Corpuscular Volume 87.7 fL (78.0-98.0); Mean Platelet Volume 7.2 fL (7.4-10.4); Platelet Count 258 thou/uL (130-400); RBC Distribution Width 15.4 % (11.5-14.5); Red Blood Cell (RBC) Count 4.55 mill/uL (4.20-5.40); White Blood Cell (WBC) Count 10.2 thou/uL (4.8-10.8)
[2020-09-08 10:00] LABS: ALT (SGPT) 21 U/L (8-55); AST (SGOT) 23 U/L (5-34); Albumin 4.2 g/dL (3.4-4.8); Alkaline Phosphatase 66 U/L (40-110); Anion Gap 16 mmol/L (10-20); BUN (Urea Nitrogen) 18 mg/dL (9.8-20.1); Bilirubin, Total 0.8 mg/dL (0.2-1.2); Calc. Creatinine Clearance 0 mL/min (70-130); Calcium 9.4 mg/dL (7.8-10.44); Carbon Dioxide 25 mmol/L (23-31); Chloride 106 mmol/L (98-107); Globulin 2.6 g/dL (2.4-3.5); Glucose 66 mg/dL (80-115); Potassium 3.2 mmol/L (3.5-5.1); Protein, Total 6.8 g/dL (5.8-8.1); Sodium 144 mmol/L (136-145)
[2020-09-08] MEDS ORDERED: Potassium Chloride 20 MEQ TAB ONE (10:16)
[2020-09-08] MEDS ORDERED: Dextrose 50% Abboject 50 ML SYRINGE ONE (10:16)
== END 2020-09-08 12:01 | disposition home or self-care (01) ==
LOC: ERS 08:53
DX: G45.4 Transient global amnesia (principal); E11.649 Type 2 diabetes mellitus with hypoglycemia without coma; E87.6 Hypokalemia; I11.0 Hypertensive heart disease with heart failure; I50.9 Heart failure, unspecified; I25.10 Atherosclerotic heart disease of native coronary artery without angina pectoris
CPT/HCPCS: 36415; 36416; 70450; 71045; 80053; 84484; 85025; 93005; 96374

== ENCOUNTER 2021-05-05 14:19 | Outpatient (CLI) | payer BC | END 2021-05-05 14:20 | disposition home or self-care (01) | LOC: BICRAD 14:19 | PROVIDERS: ATTEND Family Medicine | DX: M54.2 Cervicalgia (principal); M43.12 Spondylolisthesis, cervical region; Z98.1 Arthrodesis status | CPT/HCPCS: 72052 ==

== ENCOUNTER 2021-09-25 15:01 | Outpatient (CLI) | payer BC | END 2021-09-25 15:02 | disposition home or self-care (01) | LOC: BICMAMMO 15:01 | PROVIDERS: ATTEND Family Medicine | DX: Z12.31 Encounter for screening mammogram for malignant neoplasm of breast (principal) | CPT/HCPCS: 77063; 77067 ==

== ENCOUNTER 2022-11-04 09:21 | Outpatient (CLI) | payer BC | END 2022-11-04 09:22 | disposition home or self-care (01) | LOC: BICMAMMO 09:21 | PROVIDERS: ATTEND Family Medicine | DX: Z12.31 Encounter for screening mammogram for malignant neoplasm of breast (principal) | CPT/HCPCS: 77063; 77067 ==

== ENCOUNTER 2022-12-04 12:09 | Outpatient (CLI) | payer BC ==
[2022-12-04 13:23] LABS: #Basophils 0.1 10x3/uL (0.0-0.2); #Eosinphils 0.1 10x3/uL (0.0-0.5); #Monocytes 0.6 10x3/uL (0.0-1.1); #Neutrophils 4.3 10x3/uL (1.5-8.4); %Basophils 1.1 % (0.0-2.0); %Lymphocytes 27.8 % (18.0-47.0); %Monocytes 8.2 % (0.0-10.0); %Neutrophils 60.6 % (40.0-75.0); Hemoglobin 12.9 g/dL (12.0-15.5); Mean Corpuscular HGB CONC 32.3 g/dL (32.0-36.0); Mean Corpuscular Hemoglobin 28.9 pg (27.0-33.0); Mean Corpuscular Volume 89.5 fl (81.6-98.3); Mean Platelet Volume 9.7 fl (7.4-10.4); Platelet Count 276 10x3/uL (150-450); RBC Distribution Width 15.5 % (11.5-14.5); Red Blood Cell (RBC) Count 4.47 10x6/uL (3.90-5.03); White Blood Cell (WBC) Count 7.1 10x3/uL (3.5-10.5)
[2022-12-04 13:36] LABS: ALT (SGPT) 20 U/L (8-55); AST (SGOT) 16 U/L (5-34); Albumin 4.3 g/dL (3.4-4.8); Alkaline Phosphatase 53 U/L (40-110); Anion Gap 17 mmol/L (10-20); BUN (Urea Nitrogen) 28 mg/dL (9.8-20.1); Bilirubin, Total 1.4 mg/dL (0.2-1.2); Calc. Creatinine Clearance 0 mL/min (70-130); Calcium 9.5 mg/dL (7.8-10.44); Carbon Dioxide 23 mmol/L (23-31); Chloride 105 mmol/L (98-107); Estimated GFR 38; Globulin 2.2 g/dL (2.4-3.5); Glucose 199 mg/dL (83-110); Potassium 3.8 mmol/L (3.5-5.1); Protein, Total 6.5 g/dL (5.8-8.1); Sodium 141 mmol/L (136-145)
== END 2022-12-04 12:10 | disposition home or self-care (01) ==
LOC: LABBT 12:09
PROVIDERS: ATTEND Internal Medicine Cardiovascular Disease
DX: Z01.812 Encounter for preprocedural laboratory examination (principal); I25.10 Atherosclerotic heart disease of native coronary artery without angina pectoris
CPT/HCPCS: 80053; 83880; 85025

== ENCOUNTER 2022-12-08 05:40 | Day surgery (SDC) | payer BC ==
[2022-12-04 12:38] VITALS: BMI 30.5
[2022-12-08] MEDS ORDERED: Heparin 10,000 UNITS/ 10 ML VIAL ONE ×2 (06:09→07:38)
[2022-12-08] MEDS ORDERED: Lidocaine 1% (PF) 30 ML VIAL ONE (06:09)
[2022-12-08] MEDS ORDERED: fentaNYL 50 mcg/mL 1 mL Vial ONE ×5 (06:51→15:27)
[2022-12-08] MEDS ORDERED: Midazolam HCl 2 mg/2 ml Vial ONE (06:51)
[2022-12-08] MEDS ORDERED: Nitroglycerin 50 MG/250 ML BOT 250 ML ONE (07:39)
[2022-12-08] MEDS ORDERED: Clopidogrel Bisulfate 300 MG TAB ONE (08:13)
[2022-12-08] MEDS ORDERED: Aspirin Chewable 81 MG TAB ONE (08:24)
[2022-12-08] MEDS ORDERED: hydrALAZINE 20 MG/ML VIAL ONE (08:33)
[2022-12-08] MEDS ORDERED: Hydrocortisone Sod Succ/PF 100 mg/2 ml Vial ONE (08:36)
[2022-12-08] MEDS ORDERED: diphenhydrAMINE 50 MG/ML VIAL ONE (08:36)
[2022-12-08] MEDS ORDERED: Iopamidol 370 76% 100 ML VIAL ONE (09:43)
[2022-12-08] MEDS ORDERED: fentaNYL PF 100 MCG/2 ML SYRINGE ONE (09:45)
[2022-12-08] MEDS ORDERED: fentaNYL 50 mcg/mL 1 mL Vial SLOW IVP SCH (10:15)
[2022-12-08] MEDS ORDERED: fentaNYL 50 mcg/mL 1 mL Vial SLOW IVP PRN (10:16)
[2022-12-08] MEDS ORDERED: Mag-Al 1200 mg/1200 mg/30 ML UDCUP ONE (10:19)
[2022-12-08] MEDS ORDERED: Mag-Al 1200 mg/1200 mg/30 ML UDCUP PO SCH (10:30)
[2022-12-08] MEDS ORDERED: predniSONE 20 MG TAB PO SCH (18:15)
[2022-12-08] MEDS ORDERED: Losartan 25 MG TAB PO SCH (18:15)
== END 2022-12-08 16:35 | disposition home or self-care (01) ==
LOC: SDC 05:40
PROVIDERS: ATTEND Internal Medicine Cardiovascular Disease
DX: I25.119 Atherosclerotic heart disease of native coronary artery with unspecified angina pectoris (principal); I11.0 Hypertensive heart disease with heart failure; I50.32 Chronic diastolic (congestive) heart failure; I35.0 Nonrheumatic aortic (valve) stenosis; E78.2 Mixed hyperlipidemia; M40.00 Postural kyphosis, site unspecified; Z90.49 Acquired absence of other specified parts of digestive tract; Z88.6 Allergy status to analgesic agent; Z79.899 Other long term (current) drug therapy
CPT/HCPCS: 36416; 85347; 92928; 93005; 93454; 99152; 99153; C1725; C1769; C1874; C1887; C1894; C9600; J0360; J1200; J1644; J1720; J2001; J2250; J3010; J7512

== ENCOUNTER 2023-01-08 12:09 | Outpatient (CLI) | payer BC | END 2023-01-08 12:10 | disposition home or self-care (01) | LOC: SCSMRI 12:09 | PROVIDERS: ATTEND Nurse Practitioner Family | DX: M48.02 Spinal stenosis, cervical region (principal); M47.812 Spondylosis without myelopathy or radiculopathy, cervical region; M48.03 Spinal stenosis, cervicothoracic region | CPT/HCPCS: 72141 ==

== ENCOUNTER 2024-03-23 13:23 | Outpatient (CLI) | payer BC | END 2024-03-23 13:24 | disposition home or self-care (01) | LOC: CT 13:23 | PROVIDERS: ATTEND Emergency Medicine | DX: I25.10 Atherosclerotic heart disease of native coronary artery without angina pectoris (principal); R19.00 Intra-abdominal and pelvic swelling, mass and lump, unspecified site | CPT/HCPCS: 74176; 93880 ==